=== PATIENT | male | born 1940 | race Caucasian/White ===

== ENCOUNTER 2018-05-24 08:41 | Inpatient (IN) | payer MEDICARE, BC ==
[~2018-05-24] VITALS: Ht 185.4 cm; Wt 95.3 kg
[2018-05-24] VITALS (8 sets, daily range): BP systolic 87–163; BP diastolic 42–97
[~2018-05-24 08:41] MED LIST: ASPIRIN325 PO; BENTYL 10 MG CA10 M1 PO; FLEXERIL PO; JANUMET XR 50-1 EACH PO; LOTREL 5-20 MG1 EACH PO; MS CONTIN15 MG PO; PERCOCET 10-321 EACH PO; SIMVASTATIN20 MG PO; ZOFRAN ODT4 MG PO
[2018-05-24] MEDS ORDERED: NEURONTIN 300300 M1 PO (08:52)
[2018-05-24] MEDS ORDERED: PROTONIX40 M1 PO (08:52)
[2018-05-24] MEDS ORDERED: STOOL SOFTENER100 MG PO (08:53)
[2018-05-24] MEDS ORDERED: IRON325 PO (08:53)
[2018-05-24] MEDS ORDERED: CENTRUM SILVER1 EAC2 PO (08:53)
[2018-05-24] MEDS ORDERED: MIRALAX17 GM PO (08:53)
[2018-05-24 09:19] LABS: ABSOLUTE BASOPHILS 0.1 thou/uL (0.0-0.2); ABSOLUTE EOSINOPHILS 0.1 thou/uL (0.0-0.7); ABSOLUTE LYMPHOCYTES 1.2 thou/uL (0.8-5.3); ABSOLUTE MONOCYTES 0.7 thou/uL (0.0-1.2); ABSOLUTE NEUTROPHILS 3.3 thou/uL (1.6-8.1); EOSINOPHILS 1.9 %; HEMOGLOBIN 10.8 gm/dL (14.0-18.0); LYMPHOCYTES 22.2 %; MCH 28.5 pg (26.0-34.0); MCHC 33.8 g/dL (28.0-37.0); MCV 84.5 fL (80.0-100.0); MONOCYTES 12.4 %; MPV 7.2 fl. (7.2-11.1); NUCLEATED RBCS 0 /100WBC; PLATELET COUNT* 268 thou/uL (150-400); POLYS 62.5 %; RBC 3.79 mil/uL (4.50-6.00); RDW-CV 15.7 % (10.5-14.5); WBC 5.3 thou/uL (4.0-11.0)
[2018-05-24 09:23] LABS: ANION GAP 8 mmol/L (7-16); BUN 13 mg/dL (7-18); CALCIUM 8.6 mg/dL (8.5-10.1); CHLORIDE 87 mmol/L (98-107); CO2 26 mmol/L (21-32); CREATININE 0.9 mg/dL (0.6-1.3); GLUCOSE 126 mg/dL (70-99); SODIUM 121 mmol/L (136-145)
[2018-05-24 09:30] LABS: ALBUMIN 3.8 g/dL (3.4-5.0); ALKALINE PHOSPHATASE 55 U/L (46-116); SGOT 21 U/L (15-37); SGPT 18 U/L (30-65); TOTAL BILIRUBIN 0.4 mg/dL (<0.1-1.0); TOTAL PROTEIN 6.7 g/dL (6.4-8.2); TROPONIN-I LEVEL <0.06 ng/mL (<0.06)
[2018-05-24] MEDS ORDERED: LIORESAL 10 MG10 MG PO (11:18)
[2018-05-24 19:04] LABS: POTASSIUM 4.3 mmol/L (3.5-5.1)
[2018-05-24 23:51] LABS: URINE BILIRUBIN NEGATIVE (Negative); URINE BLOOD NEGATIVE (Negative); URINE CLARITY CLEAR; URINE COLOR YELLOW; URINE GLUCOSE-RANDOM NEGATIVE (Negative); URINE KETONES TRACE (Negative); URINE LEUKOCYTES-REFLEX NEGATIVE (Negative); URINE NITRITE-REFLEX NEGATIVE (Negative); URINE PROTEIN NEGATIVE (Negative); URINE UROBILINOGEN 0.2 E.U./dl (0.2-1.0)
[2018-05-25] VITALS (7 sets, daily range): BP systolic 99–147; BP diastolic 43–88
[2018-05-25 04:43] LABS: HEMATOCRIT 29.8 % (42.0-52.0); HEMOGLOBIN 10.1 gm/dL (14.0-18.0); MCH 28.8 pg (26.0-34.0); MCHC 33.8 g/dL (28.0-37.0); MCV 85.2 fL (80.0-100.0); MPV 7.6 fl. (7.2-11.1); RBC 3.5 mil/uL (4.50-6.00); RDW-CV 15.5 % (10.5-14.5)
[2018-05-25 05:14] LABS: CREATININE 0.8 mg/dL (0.6-1.3); MAGNESIUM 1.5 mg/dL (1.8-2.4); POTASSIUM 3.8 mmol/L (3.5-5.1)
--- NOTE | 2018-05-25 11:38 | EKG ---
[place] [address] ELECTROCARDIOGRAM REPORT Name: SUNDEEP GARG JR Room: [address] ADM IN .R.#: [id number] Admission: 05/24/18 Attend Phys: Megha Harris MD Discharge: Date of : 44 Report #: [id number] THIS REPORT FOR: //name// [facility] ED Test Date: 2018-05-24 Test Time: 09:14:07 Pat Name: SUNDEEP GARG Department: Room: [facility] Gender: Wire Repairer: Suze RANGEL : 1940 Requested By: Kristi Pierce Order Number: [id number] MD: Rubin Holloway Measurements Intervals [place] Rate: 60 P: 41 AK: 181 QRS: 24 QRSD: 98 T: 28 QT: 419 QTc: 419 Interpretive Statements Sinus rhythm Probable left atrial enlargement Abnormal inferior Q waves Compared to ECG 05/30/2014 23:06:08 Inferior Q waves now present Q waves now present Electronically Signed On 05-25-2018 11:38:45 IT APPLICATIONS ANALYST by Rubin Holloway [email or web address] <ELECTRONICALLY SIGNED> By: Rubin Holloway MD, [facility] 05/25/18 1138 0914 0914 Rubin Holloway MD, [facility] /EPI
--- NOTE | 2018-05-25 14:51 | 2DMMODE ---
[place] [address] 2 D/M-MODE ECHOCARDIOGRAM Name: SUNDEEP GARG JR Room: [address] IN [facility]#: [id number] Admission: 05/24/18 Attend Phys: Megha Harris, Discharge: Date of : 44 Date of Service: 05/25/18 1451 Report #: [id number] THIS REPORT FOR: //name// APPROVED REPORT Study performed: 05/25/2018 11:02:43 EXAM: Comprehensive 2D, Doppler, and color-flow Echocardiogram Patient Location: In-Patient Room #: [id number] Status: routine BSA: 2.06 HR: 70 bpm BP: 115/43 mmHg Rhythm: NSR Other Information Study Quality: Good Indications Hypertension/HDD 2D Dimensions IVSd: 14.78 (7-11mm) LVOT Diam: 23.10 (18-24mm) LVDd: 49.34 mm PWd: 13.08 (7-11mm) Ascending Ao: 34.28 (22-36mm) LVDs: 31.99 (25-40mm) Aortic Root: 37.78 mm Volumes Left Atrial Volume (Systole) LA ESV Index: 32.20 mL/m2 Aortic Valve AoV Peak Carmelo.: 2.95 m/s AO Peak Gr.: 34.92 mmHg LVOT Max P.87 mmHg AO Mean Gr.: 20.78 mmHg LVOT Mean P.45 mmHg LVOT Max V: 1.31 m/s AO V2 VTI: 64.49 cm LVOT Mean V: 0.85 m/s NYLA (VTI): 1.82 cm2 LVOT V1 VTI: 27.98 cm Mitral Valve E/A Ratio: 0.80 MV Decel. Time: 383.31 ms MV E Max Carmelo.: 0.79 m/[place] [address] 2 D/M-MODE ECHOCARDIOGRAM Name: SUNDEEP GARG JR Room: [address] IN .R.#: [id number] Admission: 05/24/18 Attend Phys: Megha Harris, Discharge: Date of : 44 Date of Service: 05/25/18 1451 Report #: [id number] PHT: 111.16 ms MVA (PHT): 1.98 cm2 TDI E/Lateral E': 7.18 E/Medial E': 5.27 Medial E' Carmelo.: 0.15 m/s Lateral E' Carmelo.: 0.11 m/s Pulmonary Valve PV Peak Carmelo.: 1.31 m/s PV Peak Gr.: 6.84 mmHg Tricuspid Valve RAP Estimate: 5.00 mmHg TR Peak Gr.: 33.00 mmHg RVSP: 38.00 mmHg PA Pressure: 38.00 mmHg Left Ventricle The left ventricle is normal size. There is normal LV segmental wall motion. Mild to moderate concentric left ventricular hypertrophy. Left ventricular systolic function is normal. The left ventricular ejection fraction is within the normal range. LVEF is 65-70%. Grade I - abnormal relaxation pattern. Right Ventricle The right ventricle is normal size. The right ventricular systolic function is normal. Atria Left atrium is mildly dilated. The right atrium size is normal. Aortic Valve Mild aortic valve sclerosis. No aortic regurgitation is present. Moderate aortic stenosis. Mitral Valve Mild mitral annular calcification. Trace mitral regurgitation. No evidence of mitral valve stenosis. Tricuspid Valve The tricuspid valve is normal in structure. Trace tricuspid regurgitation. estimated pa pressure 40 mm hg Pulmonic Valve Pulmonic valve is not well visualized. There is no pulmonic [place] [address] 2 D/M-MODE ECHOCARDIOGRAM Name: SUNDEEP GARG JR Room: [address] IN [facility]#: [id number] Admission: 05/24/18 Attend Phys: Megha Harris, Discharge: Date of : 44 Date of Service: 05/25/18 1451 Report #: [id number] Great Vessels The aortic root is normal in size. IVC is not well visualized. Pericardium There is no pericardial effusion. <Conclusion> Mild to moderate concentric left ventricular hypertrophy. LVEF is 65-70%. Moderate aortic stenosis. Trace tricuspid regurgitation. estimated pa pressure 40 mm hg <ELECTRONICALLY SIGNED> By: Rubin Holloway MD, FACC 05/25/181450 50 50 Rubin Holloway MD, FACC /INF
[2018-05-26] VITALS: BP 158/90
[2018-05-26 04:00] VITALS: BP 168/78
[2018-05-26 05:50] LABS: HEMOGLOBIN 9.9 gm/dL (14.0-18.0); MCV 85.1 fL (80.0-100.0); RBC 3.41 mil/uL (4.50-6.00); RDW-CV 15.7 % (10.5-14.5); WBC 5.8 thou/uL (4.0-11.0)
[2018-05-26 05:56] LABS: CALCIUM 8.7 mg/dL (8.5-10.1); CREATININE 0.7 mg/dL (0.6-1.3); MAGNESIUM 1.7 mg/dL (1.8-2.4); POTASSIUM 3.9 mmol/L (3.5-5.1)
[2018-05-26 07:54] VITALS: BP 141/79
[2018-05-26] MEDS ORDERED: PRINIVIL5 MG PO (11:33)
[2018-05-26] MEDS ORDERED: GLUCOPHAGE500 MG PO (11:33)
[2018-05-26] MEDS ORDERED: AZITHROMYCIN 2250 MG PO (11:33)
[2018-05-26] MEDS ORDERED: SODIUM CHLORIDE1 G2 PO (11:34)
[2018-05-26 11:45] VITALS: BP 141/79; BP 163/72
== END 2018-05-26 14:43 | disposition home or self-care (01) | DRG 645 ==
LOC: M.ERS 08:41 → M.TBA-ER 09:52 → M.2W 09:52
PROVIDERS: Personal Emergency Response Attendant; ADMIT Internal Medicine
DX: E22.2 Syndrome of inappropriate secretion of antidiuretic hormone (principal); I16.0 Hypertensive urgency; E11.9 Type 2 diabetes mellitus without complications; E78.00 Pure hypercholesterolemia, unspecified; D50.9 Iron deficiency anemia, unspecified; I10 Essential (primary) hypertension; Z79.1 Long term (current) use of non-steroidal anti-inflammatories (NSAID); Z79.899 Other long term (current) drug therapy; Z88.8 Allergy status to other drugs, medicaments and biological substances

== ENCOUNTER 2019-09-06 17:50 | Inpatient (IN) | payer MEDICARE, BC ==
[~2019-09-06] VITALS: Ht 185.4 cm; Wt 78.0 kg
[~2019-09-06 17:50] MED LIST changes: +AZITHROMYCIN 2250 MG PO; +CENTRUM SILVER1 EAC2 PO; +GLUCOPHAGE500 MG PO; +IRON325 PO; +LIORESAL 10 MG10 MG PO; +MIRALAX17 GM PO; +NEURONTIN 300300 M1 PO; +PRINIVIL5 MG PO; +PROTONIX40 M1 PO; +SODIUM CHLORIDE1 G2 PO; +STOOL SOFTENER100 MG PO
[2019-09-06 18:02] VITALS: BP 188/72
[2019-09-06 18:04] LABS: ABSOLUTE BASOPHILS 0.1 thou/uL (0.0-0.2); ABSOLUTE EOSINOPHILS 0.3 thou/uL (0.0-0.7); ABSOLUTE MONOCYTES 0.8 thou/uL (0.0-1.2); ABSOLUTE NEUTROPHILS 4.2 thou/uL (1.6-8.1); BASOPHILS 0.9 %; HEMATOCRIT 34.8 % (42.0-52.0); HEMOGLOBIN 12.3 gm/dL (14.0-18.0); MCH 30.9 pg (26.0-34.0); MCHC 35.5 g/dL (28.0-37.0); MCV 87.1 fL (80.0-100.0); MONOCYTES 9.3 %; MPV 8.2 fl. (7.2-11.1); NUCLEATED RBCS 0 /100WBC; PLATELET COUNT* 284 thou/uL (150-400); POLYS 49.8 %; RBC 3.99 mil/uL (4.50-6.00); RDW-CV 13.6 % (10.5-14.5); WBC 8.4 thou/uL (4.0-11.0)
[2019-09-06] MEDS ORDERED: JANUMET 50-1,01 EACH PO (18:09)
[2019-09-06] MEDS ORDERED: PERCOCET 10-321 EAC1 PO (18:09)
[2019-09-06] MEDS ORDERED: CHOLESTEROL MED (18:10)
[2019-09-06 18:13] LABS: CALCIUM 8.8 mg/dL (8.5-10.1); CREATININE 0.9 mg/dL (0.6-1.3)
[2019-09-06 18:14] LABS: APTT 23.7 Seconds (25.0-31.3); PROTIME 10.5 Seconds (9.20-11.50)
[2019-09-06 18:27] LABS: ALBUMIN 3.6 g/dL (3.4-5.0); CK-MB MASS 0.9 ng/mL (<0.5-3.6); TOTAL BILIRUBIN 0.4 mg/dL (<0.1-1.0); TOTAL PROTEIN 6.6 g/dL (6.4-8.2)
[2019-09-06 20:25] LABS: BE 0.8 mmol/L (-2 to +3); PCO2 46.1 mmHg (35.0-45.0); pH 7.375 (7.340-7.450)
[2019-09-06 22:12] VITALS: BP 128/59
[2019-09-06 22:31] LABS: URINE BILIRUBIN NEGATIVE (Negative); URINE BLOOD NEGATIVE (Negative); URINE CLARITY CLEAR; URINE COLOR YELLOW; URINE GLUCOSE-RANDOM TRACE (Negative); URINE KETONES NEGATIVE (Negative); URINE LEUKOCYTES-REFLEX NEGATIVE (Negative); URINE NITRITE-REFLEX NEGATIVE (Negative); URINE PROTEIN NEGATIVE (Negative); URINE SPECIFIC GRAVITY <= 1.005 (1.005-1.030); URINE UROBILINOGEN 0.2 E.U./dl (0.2-1.0)
[2019-09-06 22:47] VITALS: BP 128/59
[2019-09-06 23:15] VITALS: BP 156/67
[2019-09-07 01:11] VITALS: BP 190/95
[2019-09-07 04:00] VITALS: BP 107/57; BP 191/79
[2019-09-07 08:00] VITALS: BP 195/97
--- NOTE | 2019-09-07 11:07 | EKG ---
[place] [address] ELECTROCARDIOGRAM REPORT Name: SUNDEEP GARG JR Room: [address] ADM IN .R.#: [id number] Admission: 09/06/19 Attend Phys: Glenn Mcgrath, Discharge: Date of : 44 Date of Service: 09/06/19 1759 Report #: [id number] THIS REPORT FOR: //name// [facility] ED Test Date: 2019-09-06 Test Time: 17:59:31 Pat Name: SUNDEEP GARG Department: Room: [facility] Gender: M Manager Of Revenue: [facility] : 1940 Requested By: Trey Jaimes Order Number: [id number] MD: Rubin Holloway Measurements Intervals [place] Rate: 60 P: 46 AK: 160 QRS: 38 QRSD: 100 T: 19 QT: 405 QTc: 405 Interpretive Statements Sinus rhythm Probable left atrial enlargement Probable inferior infarct, age indeterminate Compared to ECG 05/24/2018 09:14:07 no change Electronically Signed On 09-07-2019 11:06:14 ALTERATION HAND by Rubin Holloway [email or web address] <ELECTRONICALLY SIGNED> By: Rubin Holloway MD, FACC 09/07/19 1106 1759 1759 Rubin Holloway MD, [facility] /EPI
[2019-09-07 11:27] VITALS: BP 133/96
[2019-09-07 11:36] LABS: AMP/METHAMP Negative (Negative); BARBITURATES Negative (Negative); BENZODIAZEPINES Negative (Negative); COCAINE Negative (Negative); METHADONE Negative (Negative); OPIATES Negative (Negative); PCP Negative (Negative); THC Negative (Negative)
[2019-09-07 17:00] VITALS: BP 142/88
[2019-09-07 19:30] VITALS: BP 125/68
[2019-09-08] VITALS: BP 136/77
[2019-09-08 02:09] LABS: GLYCOHEMOGLOBIN (HGB A1C) 10.1 % (4.8-5.6)
[2019-09-08 04:00] VITALS: BP 131/74
[2019-09-08 05:15] LABS: HEMATOCRIT 33.3 % (42.0-52.0); HEMOGLOBIN 11.9 gm/dL (14.0-18.0); MCH 31.2 pg (26.0-34.0); MCHC 35.8 g/dL (28.0-37.0); MCV 87.1 fL (80.0-100.0); MPV 7.9 fl. (7.2-11.1); RBC 3.83 mil/uL (4.50-6.00); RDW-CV 13.9 % (10.5-14.5); WBC 8.8 thou/uL (4.0-11.0)
[2019-09-08 05:39] LABS: ALBUMIN 3.2 g/dL (3.4-5.0); CALCIUM 8.2 mg/dL (8.5-10.1); CREATININE 0.7 mg/dL (0.6-1.3); MAGNESIUM 1.5 mg/dL (1.8-2.4); POTASSIUM 3.1 mmol/L (3.5-5.1); TOTAL BILIRUBIN 0.6 mg/dL (<0.1-1.0); TOTAL PROTEIN 5.9 g/dL (6.4-8.2)
[2019-09-08 08:00] VITALS: BP 153/87
[2019-09-08 11:45] VITALS: BP 146/67
[2019-09-08 16:32] VITALS: BP 156/80
[2019-09-08 20:00] VITALS: BP 166/82
[2019-09-09 00:22] VITALS: BP 115/62
[2019-09-09 04:25] VITALS: BP 103/61
[2019-09-09 08:00] VITALS: BP 164/83
[2019-09-09] MEDS ORDERED: LISINOPRIL20 MG PO (14:03)
[2019-09-09] MEDS ORDERED: HYDROCODON-ACE1 EAC7 PO (14:03)
[2019-09-09] MEDS ORDERED: GABAPENTIN 100100 MG PO (14:03)
[2019-09-09] MEDS ORDERED: LIORESAL 10 MG10 MG PO (14:03)
[2019-09-09 15:32] VITALS: BP 164/83
== END 2019-09-09 16:39 | DRG 917 ==
LOC: M.ERS 17:50 → M.TBA-ER 18:49 → M.2W 18:49
PROVIDERS: Emergency Medicine; Family Medicine; Internal Medicine; Psychiatry & Neurology Neurology; ADMIT Internal Medicine
DX: T40.601A Poisoning by unspecified narcotics, accidental (unintentional), initial encounter (principal); G93.41 Metabolic encephalopathy; Z96.641 Presence of right artificial hip joint; E78.00 Pure hypercholesterolemia, unspecified; I10 Essential (primary) hypertension; E11.65 Type 2 diabetes mellitus with hyperglycemia; T40.2X5A Adverse effect of other opioids, initial encounter; G89.29 Other chronic pain; T42.8X5A Adverse effect of antiparkinsonism drugs and other central muscle-tone depressants, initial encounter; M54.9 Dorsalgia, unspecified; Z88.8 Allergy status to other drugs, medicaments and biological substances; Y92.89 Other specified places as the place of occurrence of the external cause; Z79.899 Other long term (current) drug therapy